=== PATIENT | male | born 1990 | race Caucasian/White ===

== ENCOUNTER 2023-12-13 23:26 | Emergency (ER) | payer OTHER ==
[~2023-12-13] VITALS: Wt 70.5 kg
[2023-12-13] MEDS ORDERED: NS 1,000 ML IV SCH (23:45)
[2023-12-13] MEDS ORDERED: Mag/Al Hydrox/Simeth Susp 30 ML CUP PO ONE (23:45)
[2023-12-13] MEDS ORDERED: Lidocaine 2% Viscous 15 ML UNIT DOSE CUP MM ONE (23:45)
[2023-12-14 00:02] LABS: BASO # 0.02 K/mm3 (0.02-0.10); EOS # 0.05 K/mm3 (0.04-0.40); EOS % 0.6 % (0.0-4.0); HEMATOCRIT 42.5 % (42.0-52.0); HEMOGLOBIN 14.4 g/dL (13.5-18.0); LYMPH# 1.87 K/mm3 (1.50-4.00); MEAN CELL VOLUME 87 fl (78-100); MEAN CORPUSCULAR HEMOGLOBIN 29 pg (27-31); MEAN CORPUSCULAR HGB CONC 34 g/dL (33-37); MEAN PLATELET VOLUME 8.7 fl (7.4-10.4); MONO # 0.53 K/mm3 (0.20-0.80); NEU # 5.46 K/mm3 (1.40-6.50); PLATELET COUNT 258 K/mm3 (130-400); RED CELL DISTRIBUTION WIDTH 11.3 % (11.5-14.5); WHITE BLOOD COUNT 7.9 K/mm3 (4.8-10.8)
[2023-12-14] MEDS ORDERED: NOVOLOG FLEX100 U/ML SQ (00:13)
[2023-12-14] MEDS ORDERED: LANTUS PEN100 U/ML SQ (00:13)
[2023-12-14 00:14] LABS: CALCIUM 9.1 mg/dL (8.3-10.5)
[2023-12-14 00:15] LABS: TOTAL PROTEIN 6.4 g/dL (6.4-8.3)
[2023-12-14 00:17] LABS: TOTAL BILIRUBIN 0.4 mg/dL (0.2-1.2)
[2023-12-14 00:36] LABS: URINE APPEARANCE CLEAR (CLEAR); URINE BILIRUBIN NEGATIVE (NEGATIVE); URINE BLOOD NEGATIVE (NEGATIVE); URINE COLOR YELLOW (YELLOW); URINE GLUCOSE 2+ (NEGATIVE); URINE KETONE NEGATIVE (NEGATIVE); URINE LEUKOCYTE ESTERASE NEGATIVE (NEGATIVE); URINE NITRATE NEGATIVE (NEGATIVE); URINE PROTEIN(semi-quant) NEGATIVE (NEGATIVE); URINE WBC 0-1 /hpf (0-3)
[2023-12-14] MEDS ORDERED: PRILOSEC OTC20 MG PO (00:44)
[2023-12-14] MEDS ORDERED: Insulin Human Regular (NovoLIN R) SQ ONE (00:45)
[2023-12-14] MEDS ORDERED: Insulin Glargine-ygfn (Lantus) SQ ONE (01:00)
[2023-12-14 01:15] VITALS: BP 120/78
== END 2023-12-14 01:15 ==
LOC: ED 23:26
PROVIDERS: Physician Assistant
DX: K21.9 Gastro-esophageal reflux disease without esophagitis (principal); E10.9 Type 1 diabetes mellitus without complications
CPT/HCPCS: J1815; J7030